=== PATIENT | female | born 1965 | race Two or more races ===

== ENCOUNTER 2022-02-12 19:32 | Emergency (ER) | payer BC, OTHER ==
[~2022-02-12] VITALS: Ht 162.6 cm; Wt 86.2 kg
[2022-02-12 20:19] VITALS: BP 131/75
[2022-02-12] MEDS ORDERED: IOHEXOL 350 MG/ML 100ML IJ ONE (20:37)
[2022-02-12 21:46] LABS: Basophils # (auto) 0 10 ^3/uL (0-0.2); Basophils % (auto) 0.5 % (0.0-2.0); Eosinophils # (auto) 0.2 10 ^3/uL (0-0.8); Eosinophils % (auto) 2.1 % (0.0-7.0); Hematocrit 43.6 % (36.0-46.0); Hemoglobin 14.7 g/dL (12.2-16.2); Lymphocytes % (auto) 23.6 % (10.0-50.0); Mean Corpuscular Hemoglobin 31.2 pg (28.0-32.0); Mean Corpuscular Hgb Conc. 33.8 g/dL (32.0-36.0); Mean Corpuscular Volume 92.5 fL (80.0-100.0); Monocytes # (auto) 0.7 10 ^3/uL (0-1.3); Monocytes % (auto) 8.1 % (0.0-12.0); Neutrophils # (auto) 5.6 10 ^3/uL (1.6-8.6); Neutrophils % (auto) 65.7 % (37.0-80.0); Nucleated Red Blood Cells % 0.1 %; Red Blood Cells 4.71 10^6/uL (4.0-5.20); Red Cell Distribution Width 12.7 % (11.8-14.3); White Blood Cell 8.5 10^3/uL (4.4-10.8)
[2022-02-12 22:04] LABS: Albumin 3.5 g/dL (3.4-5.0); Calcium 8.7 mg/dL (8.5-10.1); Potassium 4.1 mmol/L (3.5-5.1)
[2022-02-12 22:07] LABS: BUN/Creatinine Ratio 18.3; Bilirubin, Total 0.4 mg/dL (0.2-1.0); Total Protein 7.5 g/dL (6.4-8.2)
[2022-02-12] MEDS ORDERED: KETOROLAC TROMETH 30 MG/ML 1ML VIAL IV ONE (22:45)
== END 2022-02-13 00:31 | disposition home or self-care (01) ==
LOC: EDBD 19:32 → ER 19:35
DX: S60.022A Contusion of left index finger without damage to nail, initial encounter (principal); S80.02XA Contusion of left knee, initial encounter; S09.90XA Unspecified injury of head, initial encounter; Z98.51 Tubal ligation status; Z90.89 Acquired absence of other organs; Z90.49 Acquired absence of other specified parts of digestive tract; V43.52XA Car driver injured in collision with other type car in traffic accident, initial encounter; Y93.89 Activity, other specified; Y92.410 Unspecified street and highway as the place of occurrence of the external cause; Y99.8 Other external cause status
CPT/HCPCS: 36415; 70450; 71260; 72125; 73130; 73562; 74177; 80053; 84484; 85025; 93005; 96374; 99285; J1885; Q9967

== ENCOUNTER 2024-10-21 21:30 | Emergency (ER) | payer OTHER ==
[~2024-10-21] VITALS: Ht 162.6 cm; Wt 88.6 kg
[2024-10-21 22:25] VITALS: BP 156/96; PULSE 77; RESP 20; TEMP 98.8; O2SAT 98
[2024-10-21] MEDS: HYDROcodone-ACET 5/325MG TAB PO ONE (22:37)
[2024-10-21] MEDS: ONDANSETRON ODT 4 MG TAB PO ONE (22:38)
--- NOTE | 2024-10-21 22:38 | ED.PDOC ---
Musculoskeletal HPI Comments 59-YEAR-OLD FEMALE PRESENTS TO ER WITH COMPLAINTS OF FALL INJURY X1 DAY. PATIENT REPORTS THAT SHE TRIPPED OVER A CABLE WHILE WALKING AND LANDED ON HER LEFT KNEE ONTO HARD METAL EDITA AT 4:30 P.M. PRIOR TO ARRIVAL TO ER AND HAS SINCE BEEN EXPERIENCING PAIN/SWELLING TO LEFT KNEE. SHE RATES HER CURRENT PAIN A 3/10 TO LEFT KNEE PRESENT AT REST WITH RADIATION TOWARDS LEFT HIP AND STATES HER PAIN IS SIGNIFICANTLY WORSE WITH MOVEMENT. NOTES SHE HAS NOT BEEN ABLE TO BEAR WEIGHT ON LEFT LEG DUE TO LEFT KNEE PAIN AND PRESENTS TO ER IN WHEELCHAIR. PATIENT ALSO REPORTS MILD RIGHT WRIST PAIN POST FALL. DENIES HEAD INJURY/LOC, NUMBNESS/TINGLING OR ANY FURTHER SYMPTOMS/COMPLAINTS Chief Complaint: Fall Injury Time Seen by MD: 21:51 Primary Care Provider: EDIL Reviewed Notes: Nurses Notes, Medications, Allergies Allergies: Coded Allergies: NO KNOWN ALLERGIES (Unverified , 01/11/11) Home Meds Active Scripts Acetaminophen W/ Codeine (Tylenol W/Cod #3) 1 Tab Tb, 1 TAB PO Q6HPRN PRN, #10 TAB 0 Refills Prov:GREGORY VIGIL 10/21/24 Information Source: Patient Mode of Arrival: Wheelchair Past Medical History PAST MEDICAL HISTORY: Denies Surgical History: Appendectomy, BTL, Cholecystectomy EYEGLASS FRAME TRUER History: No Pertinent EYEGLASS FRAME TRUER History Family History Family History: No family hx of DM, No family hx of HTN Social History Smoker: Non-Smoker Alcohol: Occasionally Drugs: Denies Drug Use Lives In: Home Constitutional: denies: chills, diaphoresis, fatigue, fever, malaise, sweats, weakness, others EENTM: denies: blurred vision, double vision, ear bleeding, ear discharge, ear drainage, ear pain, ear ringing, eye pain, eye redness, hearing loss, mouth pain, mouth swelling, nasal discharge, nose bleeding, nose congestion, nose pain, photophobia, tearing, throat pain, throat swelling, voice changes, others Respiratory: denies: cough, hemoptysis, orthopnea, SOB at rest, shortness of breath, SOB with excertion, stridor, wheezing, others Cardiovascular: denies: chest pain, dizzy spells, diaphoresis, Dyspnea on exertion, edema, irregular heart beat, left arm pain, lightheadedness, palpitations, PND, syncope, others Gastrointestinal: denies: abdomen distended, abdominal pain, blood streaked bowels, constipated, diarrhea, dysphagia, difficulty swallowing, hematemesis, melena, nausea, poor appetite, poor fluid intake, rectal bleeding, rectal pain, vomiting, others Genitourinary: denies: abnormal vagina bleeding, burning, dyspareunia, dysuria, flank pain, frequency, hematuria, incontinence, pain, , vagina discharge, urgency, others Neurological: denies: dizziness, fainting, headache, left sided numbness, left sided weakness, numbness, paresthesia, pre-existing deficit, right sided numbnes s, right sided weakness, seizure, speech problems, tingling, tremors, weakness, others Musculoskeletal: reports: others ( STATED IN HPI) Integumetry: reports: others ( STATED IN HPI) Allergic/Immunocompromised: denies: Difficulty Healing, Frequent Infections, Hives, Itching, others Hematologic/Lymphatic: denies: anemia, blood clots, easy bleeding, easy bruising, swollen glands, others Endocrine: denies: excessive hunger, excessive sweating, excessive thirst, excessive urination, flushing, intolerance to cold, intolerance to heat, unexplained weight gain, unexplained weight loss, others Psychiatric: denies: anxiety, bipolar disorder, depression, hopeless, panic disorder, schizophrenia, sleepless, suicidal, others Physical Exam General Appearance: No Apparent Distress, Obese HEENT: PERRL/EOMI Neck: Full Range of Motion, Non-Tender, Normal Respiratory: Chest Non-Tender, Lungs Clear, No Accessory Muscle Use, No Respiratory Distress, Normal Breath Sounds Cardiovascular: No Murmur, No Gallop, Regular Rate/Rhythm Breast Exam: Deferred Gastrointestinal: NOT DONE Genitalia: Deferred Pelvic: Deferred Rectal: Deferred Extremities: No calf tenderness, Normal capillary refill Musculoskeletal : Extremity Location: Hip (TTP TO LEFT HIP NOTED. NO INTERNAL ROTATION/SHORTENING TO BILATERAL LOWER EXTREMITIES NOTED), Knee (MODERATE SWELLING/TTP NOTED TO LEFT PATELLA. DECREASED RANGE OF MOTION ON FLEXION OF LEFT KNEE NOTED DUE TO PAIN CENTRALIZED TO LEFT PATELLA. PATIENT UNABLE TO BEAR WEIGHT ON LEFT LEG DUE TO PAIN CENTRALIZED TO LEFT PATELLA. PULSES INTACT. NO TTP TO LEFT TIB/FIB, LEFT ANKLE OR LEFT FOOT NOTED), Wrist (NO TTP/DEFORMITY TO RIGHT WRIST NOTED) Neurologic: Alert, Normal Affect, Normal Mood, No Sensory Deficits Cerebellar Function: Normal Reflexes: Normal Skin: Dry, Normal Color, Warm Peripheral Pulses: 2+ femoral (R), 2+ femoral (L), 2+ dorsalis pedis (R), 2+ dorsalis pedis (L), 2+ Radial (R), 2+ Radial (L), 2+ Brachial (R), 2+ Brachial (L) Lymphatic: No Adenopathy Was a procedure done? Was a procedure done?: No Sedation Sedation?: No Differential Diagnosis EXT Differential Diagnosis: Dislocation, Laceration, Neurovascular injury X-Ray, Labs, Meds, VS Vital Signs Date Time Temp Pulse Resp B/P (MAP) Pulse Ox O2 Delivery O2 Flow Rate FiO2 10/21/24 22: 77 20 98 Room Air 10/21/24 22: 98.8 77 20 156/96 (116) 98 98.8 10/21/24 21:42 98.8 89 14 159/91 (113) 98 98.8 Current Medications Medications (Trade) Dose Ordered Sig/Keisha Route Start Time Stop Time Status Last Admin Acetaminophen/ Hydrocodone Bitart (Elk 5/325MG Tab) 1 tab ONCE ONCE PO 10/21/24 22:30 10/21/24 22:31 DC 10/21/24 22:37 Ondansetron HCl (Zofran Po) 4 mg ONCE ONCE PO 10/21/24 22:30 10/21/24 22:31 DC 10/21/24 22:38 PATIENT: MAZIN SCHNEIDERACCT: [id number]: [id number] : 1965 LOC: ER ROOM / BED: / AGE / SEX: 59 / F ADM STATUS: REG ER SERVICE 18 ORDERING PHYSICIAN: GREGORY VIGIL PROCEDURE(s): LKNE3 - L KNEE 3V XRAY REASON: LEFT KNEE PAIN ORDER NUMBER(s): [id number], ACCESSION NUMBER(s): [id number] CLINICAL INDICATION: LEFT KNEE PAIN TECHNIQUE: XY L KNEE 3V XRAY Comparison: L KNEE 3V XRAY on DOS: 02/12/22 FINDINGS/IMPRESSION: Nondisplaced acute traumatic fracture involving the mid patella. Large effusion in the suprapatellar recess. ATED BY: AUREA GASTELUM MD DICTATED DATE/TIME: 10/21/242352 SIGNED BY: AUREA GASTELUM MD SIGNED DATE/TIME: 10/21/242352 CC: PATIENT: MAZIN SCHNEIDER ACCT: [id number] UNIT: [id number] : 1965 LOC: ER ROOM / BED: / AGE / SEX: 59 / F ADM STATUS: REG ER SERVICE 10 ORDERING PHYSICIAN: GREGORY VIGIL PROCEDURE(s): LHIP - L HIP COMPLETE XRAY REASON: LEFT HIP PAIN ORDER NUMBER(s): [id number], ACCESSION NUMBER(s): [id number] CLINICAL INDICATION: LEFT HIP PAIN TECHNIQUE: XY L HIP COMPLETE XRAY Comparison: None FINDINGS: Radiographs of the pelvis and left hip demonstrate no osseous or joint abnormality with no fracture or dislocation. Joint spaces are normal. IMPRESSION: No abnormality demonstrated. ATED BY: ALY GARZA MD DICTATED DATE/TIME: 10/21/242352 SIGNED BY: ALY GARZA MD SIGNED DATE/TIME: 10/21/242352 CC: NORCO 5/325 MG P.O. ORDERED ZOFRAN 4 MG P.O. ORDERED LEFT KNEE X-RAY REVIEWED LEFT HIP X-RAY REVIEWED PATIENT NEUROVASCULARLY INTACT AND REPORTED IMPROVEMENT IN SYMPTOMS PRIOR TO DISCHARGE ADVISED ON REST/NO STRENUOUS ACTIVITY, ELEVATION AND ALTERNATE ICE ON/OFF NEEDED FOR PAIN/SWELLING LEFT KNEE IMMOBILIZER APPLIED CRUTCHES ORDERED, PATIENT EDUCATED ON PROPER USE. WAS ADVISED ON USE AT ALL TIMES/NONWEIGHTBEARING LEFT LEG PATIENT PROVIDED COPIES OF X-RAY IMAGING REPORTS PATIENT ALSO PROVIDED INFORMATION WITH REGARDS TO LOCAL ORTHOPEDICS AND ADVISED TO FOLLOW UP IN 1-2 DAYS ADVISED TO FOLLOW UP WITH PCP IN 1-2 DAYS PATIENT VERBALIZED UNDERSTANDING AND AGREEABLE WITH CURRENT PLAN OF CARE ADVISED TO RETURN TO ER IMMEDIATELY IF SYMPTOMS WORSEN Images Reviewed?: Images reviewed and evaluated by me Time of 1ST Reevaluation: 22:32 Reevaluation 1ST: N/A Time of 2ND Reevaluation: 23:40 Reevaluation 2ND: Improved Patient Education/Counseling: Diagnosis, Treatment, Prognosis, Need For Follow Up Family Education/Counseling: No Family Present Departure 1 Departure Time of Disposition: 23:42 Impression: Primary Impression: Patella fracture Qualified Codes: S82.002A - Unspecified fracture of left patella, initial encounter for closed fracture Disposition: HOME / SELF CARE / HOMELESS Condition: Stable e-Prescriptions Acetaminophen W/ Codeine (Tylenol W/Cod #3) 1 Tab Tb 1 TAB PO Q6HPRN PRN, #10 TAB 0 Refills Prov: GREGORY VIGIL 10/21/24 Discharged With: Other ([facility]) Critical Care Note Critical Care Time?: No Stability Stability form required: No Heart Score Heart Score: Heart Score Response (Comments) Value History N/A 0 EKG N/A 0 Age N/A 0 Risk Factors N/A 0 Troponin N/A 0 Total 0 GREGORY VIGIL Oct 21, 2024 22:37
[2024-10-21] MEDS ORDERED: ACE3T PO (23:49)
--- NOTE | 2024-10-21 23:55 | DVH ---
CLINICAL INDICATION: LEFT HIP PAIN TECHNIQUE: XY L HIP COMPLETE XRAY Comparison: None FINDINGS: Radiographs of the pelvis and left hip demonstrate no osseous or joint abnormality with no fracture o r dislocation. Joint spaces are normal. IMPRESSION: No abnormality demonstrated.
--- NOTE | 2024-10-21 23:56 | DVH ---
CLINICAL INDICATION: LEFT KNEE PAIN TECHNIQUE: XY L KNEE 3V XRAY Comparison: L KNEE 3V XRAY on DOS: 02/12/22 FINDINGS/IMPRESSION: Nondisplaced acute traumatic fracture involving the mid patella. Large effusion in the suprapatellar recess.
== END 2024-10-22 00:17 | disposition home or self-care (01) ==
LOC: ER 21:30
DX: S82.092A Other fracture of left patella, initial encounter for closed fracture (principal); Z90.49 Acquired absence of other specified parts of digestive tract; Z98.51 Tubal ligation status; W01.0XXA Fall on same level from slipping, tripping and stumbling without subsequent striking against object, initial encounter; Y93.01 Activity, walking, marching and hiking; Y92.89 Other specified places as the place of occurrence of the external cause; Y99.8 Other external cause status
CPT/HCPCS: 29505; 73502; 73562; 99284; Q0162

== ENCOUNTER 2024-11-05 07:34 | Day surgery (SDC) | payer OTHER ==
[2024-11-01 14:18] LABS: Urine Bacteria None Seen /hpf (None Seen)
[2024-11-01 14:24] LABS: Basophils # (auto) 0.1 10 ^3/uL (0-0.2); Basophils % (auto) 1.4 % (0.0-2.0); Eosinophils # (auto) 0.1 10 ^3/uL (0-0.8); Eosinophils % (auto) 1.7 % (0.0-7.0); Hematocrit 40.5 % (36.0-46.0); Hemoglobin 13.9 g/dL (12.2-16.2); Lymphocytes # (auto) 1.5 10 ^3/uL (0.4-5.4); Lymphocytes % (auto) 27.5 % (10.0-50.0); Mean Corpuscular Hemoglobin 32.3 pg (28.0-32.0); Mean Corpuscular Hgb Conc. 34.4 g/dL (32.0-36.0); Monocytes # (auto) 0.5 10 ^3/uL (0-1.3); Monocytes % (auto) 8.2 % (0.0-12.0); Neutrophils # (auto) 3.4 10 ^3/uL (1.6-8.6); Neutrophils % (auto) 61.2 % (37.0-80.0); Nucleated Red Blood Cells % 0.1 %; Platelet Count (auto) 380 10^3/uL (140-450); Red Blood Cells 4.31 10^6/uL (4.0-5.20); Red Cell Distribution Width 13.3 % (11.8-14.3); White Blood Cell 5.5 10^3/uL (4.4-10.8)
[2024-11-01 14:38] LABS: INR 0.93 (0.9-1.15); Partial Thromboplastin Time 29.8 SEC (24.5-34.5); Prothrombin Time 9.9 sec (9.3-11.8)
[2024-11-01 14:51] LABS: Alanine Aminotransferase 12 U/L (7-40); Albumin 4.5 g/dL (3.2-4.8); Alkaline Phosphatase 115 U/L (46-116); Anion Gap 8 (5-15); Aspartate Aminotransferase 14 U/L (13-40); BUN/Creatinine Ratio 16.9 (10.0-20.0); Bilirubin, Total 0.6 mg/dL (0.2-1.0); Blood Urea Nitrogen 10 mg/dL (9-23); Calcium 9.6 mg/dL (8.7-10.4); Carbon Dioxide 30 mmol/L (20-31); Chloride 103 mmol/L (98-107); Glucose 86 mg/dL (74-106); Sodium 141 mmol/L (136-145); Total Protein 7.2 g/dL (5.7-8.2)
[2024-11-01 15:07] LABS: Urine Blood Negative /uL (Negative); Urine Clarity Clear (Clear); Urine Color Yellow (Yellow); Urine Protein, UAD Negative (Negative); Urine Specific Gravity 1.019 (1.001-1.035); Urine Squamous Epithelial Cell FEW /hpf (<5); Urine Urobilinogen 3 mg/dL (Negative); Urine WBC 6 /HPF (0-5); Urine pH 6.5 (5.0-9.0)
[~2024-11-05] VITALS: Ht 162.6 cm; Wt 86.2 kg
[~2024-11-05 07:34] MED LIST: TRAM-626 PO; VENL25TA40 PO
[2024-11-05] MEDS: ceFAZolin 2 GM/D5W100ml 100 ML IV ONE (07:41)
[2024-11-05] MEDS: VANCOMYCIN HCL 1000 MG VL ONE (07:59)
[2024-11-05] MEDS ORDERED: TOBRAMYCIN PER PHARMACY 0 ML IV SCH (08:00)
[2024-11-05] MEDS ORDERED: fentaNYL CITRATE 100 MCG/2 ML VL ONE (08:04)
[2024-11-05] MEDS ORDERED: PROPOFOL 10 MG/ML 20 ML IV ONE ×2 (08:04→08:39)
[2024-11-05] MEDS ORDERED: DexAMETHasone SOD PHOS 10MG/1ML VIAL INJ ONE ×2 (08:39→09:01)
[2024-11-05] MEDS ORDERED: KETOROLAC TROMETH 30 MG/ML 1ML VIAL ONE (08:39)
[2024-11-05] MEDS ORDERED: GLYCOPYRROLATE 0.2 MG/ML 1ML VIAL ONE (08:39)
[2024-11-05] MEDS ORDERED: LIDOCAINE 1% INJ PF 5ML AMP ONE ×2 (08:39→09:12)
[2024-11-05] MEDS ORDERED: ONDANSETRON HCL 4 MG/2 ML VIAL ONE (08:39)
[2024-11-05] MEDS ORDERED: KETAMINE 50mg/ML 1ml syringe ONE (08:39)
[2024-11-05] MEDS: GABAPENTIN 300 MG CAP PO ONE (09:35)
[2024-11-05] MEDS: CELECOXIB 100 MG CAP PO ONE (09:35)
[2024-11-05] MEDS: ACETAMINOPHEN IV 1000 MG/100ML (10MG/ML) IV ONE (09:35)
[2024-11-05] MEDS: CELECOXIB 100 MG CAP ONE (09:36)
[2024-11-05] MEDS: GABAPENTIN 300 MG CAP ONE (09:37)
[2024-11-05] MEDS: ACETAMINOPHEN IV 100 ML IV ONE (09:37)
[2024-11-05] MEDS ORDERED: SODIUM CHLORIDE LOCK 10 ML ONE (10:07)
[2024-11-05] MEDS ORDERED: PHENYLEPHRINE HCL 10 MG/ML VL ONE (10:07)
[2024-11-05 10:48] VITALS: PULSE 72; RESP 16; TEMP 97.8; O2SAT 97
[2024-11-05] MEDS ORDERED: NALOXONE HCL 0.4 MG/ML VIAL IV PRN (11:00)
[2024-11-05] MEDS ORDERED: FLUMAZENIL 0.1 MG/ML INJ 10ML MDV IV PRN (11:00)
[2024-11-05] MEDS ORDERED: hydrALAZINE HCL 20 MG/ML VL IV PRN (11:00)
[2024-11-05] MEDS ORDERED: HYDROmorphone HCL 2 MG/ML VL/or syr IV PRN (11:00)
[2024-11-05] MEDS ORDERED: oxyCODONE HCL 5MG TAB PO PRN (11:00)
[2024-11-05] MEDS ORDERED: fentaNYL CITRATE 100 MCG/2 ML VL IV PRN (11:00)
[2024-11-05] MEDS ORDERED: ePHEDrine SULFATE 50 MG/ML AMP IV PRN (11:00)
[2024-11-05] MEDS ORDERED: ONDANSETRON HCL 4 MG/2 ML VIAL IV PRN (11:00)
[2024-11-05 12:10] VITALS: BP 145/67; PULSE 59; RESP 13; O2SAT 97
--- NOTE | 2024-11-05 16:28 | DVH ---
C-ARM FLUOROSCOPY: PROCEDURE: Left patella ORIF FLUOROSCOPY TIME: 18.2 seconds DAP: 0.74 mgy FINDINGS: Spot intraoperative C arm radiographs demonstrating left patella ORIF. IMPRESSION: Please refer to surgical report for detailed findings.
--- NOTE | 2024-11-07 16:16 | DVHOP2 ---
Operative Report - 2 Report Details Date: 11/05/24 Preop Diagnosis: Left patella fracture Postop Diagnosis: Left patella fracture Surgeon: Williams Tanner MD Electric Dolly Operator: Cortes HENDERSON Anesthesiologist: Cheri MORAN Anesthesia: General Implant: [place] Patella plate Consent: The patient was informed of the risks and benefits of the procedure. These include but are not limited to complications of anesthesia, postoperative infection, incomplete relief of symptoms, recurrence of symptoms, damage to blood vessels, nerves and tendons, deep venous thrombosis, pulmonary embolism and possible need for repeat surgery in the future. Estimated Blood Loss: 5 cc Name of Procedure Performed Open reduction internal fixation of left patella fracture; left medial and lateral retinaculum repair; intraop fluoro Procedure Details Procedure Details: After the induction of anesthesia, time-out was carried out to verify patient, procedure to be done, and site to be operated on. The patient was cleared medically prior to surgery. The patient had a tourniquet applied to the proximal portion of the left lower extremity. The extremity was scrubbed, prepped, and draped in a sterile manner. The patient was given Keflex IV before the tourniquet was elevated, after which wrapped with an Esmarch at 250 mmHg. A longitudinal prepatellar incision was made. A significant amount of hematoma was evacuated, and pulse lavage irrigation was used to clean out the remainder of the hematoma. . First #2 Ethibond sutures were placed and interrupted sutures in the medial lateral retinaculum clamped and to be tied later. Next, the bone reduction clamp was used to reduce the proximal patellar fracture, and plate selected to cover fracture and screws placed under fluoro to hold fracture reduced. Sutures, once they were passed, they were looped back through the proximal pole and tied to the medial lateral side. It was noted that on first attempt to reduce it and tie the suture down, the sutures were loose, so they had to be removed and it was redone in the same manner using additional FiberWire to the same drill holes through the same patellar ligament tissue. At this time, a good hold was made once we applied tension to the FiberWire medially and laterally and brought the patella together. C-arm image showed good position of the screw and good position of the reduced patellar fracture. Next, the retinacular sutures were sutured both medially and laterally, the ones previously applied. The slight bony protuberance anteriorly was shaved using a rongeur. Then, 2-0 Vicryl was used to close the remainder of the retinaculum from top to bottom, 2-0 undyed Vicryl subcutaneously, and the emi for the skin. Also, Dermabond was used on the skin. No drain was needed. The tourniquet time was 92 minutes, but once the tourniquet was released, and before the final sutures were put in, the remainder of the 2 liters of pulse lavage irrigations was used. The patient was placed in a fresh new knee immobilizer and brought from the operating room in stable condition. Condition Good Disposition Home WILLIAMS TANNER MD Nov 07, 2024 16:16
== END 2024-11-05 12:30 | disposition home or self-care (01) ==
LOC: SUR 07:34
PROVIDERS: ATTEND Orthopaedic Surgery Adult Reconstructive Orthopaedic Surgery
DX: S82.092A Other fracture of left patella, initial encounter for closed fracture (principal); E66.9 Obesity, unspecified; Z68.32 Body mass index [BMI] 32.0-32.9, adult; Z79.891 Long term (current) use of opiate analgesic; Z79.899 Other long term (current) drug therapy; Z90.49 Acquired absence of other specified parts of digestive tract; Z98.51 Tubal ligation status; Z98.84 Bariatric surgery status; Z86.2 Personal history of diseases of the blood and blood-forming organs and certain disorders involving the immune mechanism; Z98.890 Other specified postprocedural states; X58.XXXA Exposure to other specified factors, initial encounter; Y93.89 Activity, other specified; Y92.89 Other specified places as the place of occurrence of the external cause; Y99.8 Other external cause status
CPT/HCPCS: 27524; 36415; 64454; 73560; 80053; 81001; 85025; 85610; 85730; C1776; J1100; J1885; J2371; J2405; J2704; J3370; 76000; J0131